=== PATIENT | male | born 1965 | race Caucasian/White ===

== ENCOUNTER → 2019-10-06 | Day surgery (SDC) | payer OTHER ==
[~2019-10-06] MED LIST: IV RINGERS,LACTATED 1000ML 1,000 ML IV SCH; LIDOCAINE 2% PF 5 ML VIAL. ONE; PROPOFOL 40 ML IV ONE
[2019-10-06 16:37] VITALS: BP 138/91
--- NOTE | 2019-10-07 02:19 | HP ---
ADMIT DATE: 10/06/2019 REFERRING PHYSICIAN: Barry Gallardo. REASON FOR CONSULTATION: Positive family history of colon cancer and a history of colonic polyps. HISTORY OF PRESENT ILLNESS: A 54-year-old male with past medical history significant for history of colon polyps, seen for surveillance exam. Bowel habits are regular without diarrhea, but no constipation or diarrhea. Weight and appetite are stable. Family history is positive for colon cancer with his father. He is otherwise without additional complaints. PAST MEDICAL HISTORY: Colon polyps. FAMILY HISTORY: Significant for colon cancer with his father and grandmother. No polyps. ALLERGIES: None. MEDICATIONS: None. SOCIAL HISTORY: He is a social drinker, nonsmoker. PAST SURGICAL HISTORY: No prior surgical history. REVIEW OF SYSTEMS: Per records. PHYSICAL EXAMINATION: GENERAL: Reveals a well-nourished, well-developed male. VITAL SIGNS: Temperature is 97.9, pulse 104, respiratory rate 18. LUNGS: Clear. CARDIOVASCULAR: S1, S2 without S3, S4 or appreciable murmur. ABDOMEN: Soft abdomen, normal bowel sounds, without appreciable hepatosplenomegaly. EXTREMITIES: Reveals no cyanosis, clubbing or edema. IMPRESSION: Colorectal screening with positive family history of colon cancer and personal history of polyps ____. Risks and benefits were discussed with the patient previously, is willing to proceed. CLARY DAILEY MD DR: [email or web address] JOB#: [id number] / [id number]
== END ==
LOC: ENDOS 14:57
PROVIDERS: ATTEND Internal Medicine Gastroenterology
DX: Z12.11 Encounter for screening for malignant neoplasm of colon (principal); K64.0 First degree hemorrhoids; K63.89 Other specified diseases of intestine; E66.3 Overweight; Z68.27 Body mass index [BMI] 27.0-27.9, adult; Z98.890 Other specified postprocedural states; Z80.0 Family history of malignant neoplasm of digestive organs; Z86.010 Personal history of colon polyps; Z72.89 Other problems related to lifestyle
CPT/HCPCS: 45378; J2001; J2704